=== PATIENT | male | born 1940 | race Caucasian/White ===

== ENCOUNTER → 2017-02-02 | Outpatient (CLI) | payer OTHER ==
--- NOTE | 2017-02-02 12:58 | RADRPT ---
EXAM DATE/TIME: 02/02/2017 00:00 [place] COMPARISON: No previous studies available for comparison. INDICATIONS : Other disturbance of skin sensation TECHNIQUE: Five-station segmental examination of the lower extremities was performed pre and post extercise. Pulsed-cuff waveform tracings and pressures were recorded. Ankle-brachial indices and toe-brachial indices were calculated. PRESSURES (mmHg): Pre Exercise: Brachial (arm): Right 117 Left 122 Ankle: Right 149 Left 154 MICHELLE: Right 1.22 Left 1.26 TBI: Right 0.99 Left 0.86 Post Exercise: Brachial (arm): Left 136 Not applicable Ankle: Right 149 Left 179 PULSED CUFF WAVEFORMS: Demonstrate normal amplitude bilaterally. CONCLUSION: Unremarkable segmental evaluation of the lower extremities. Normal MICHELLE and TBI bilaterally Marlon Velasquez MD on February 02, 2017 at 12:56 Board Certified Radiologist. This report was verified electronically.
== END ==
LOC: HCAV 11:50
DX: R20.8 Other disturbances of skin sensation (principal)
CPT/HCPCS: 93924